=== PATIENT | male | born 1940 | race Two or more races ===

== ENCOUNTER → 2023-11-17 11:23 | Outpatient (REF) | payer OTHER, BC, SELFPAY ==
[2023-11-17 13:23] LABS: Urine Albumin Trace (Neg - Trace); Urine Bilirubin Negative (Negative); Urine Character Slightly Cloudy (Clear); Urine Color Yellow; Urine Glucose Negative (Negative); Urine Ketone Negative (Negative); Urine Leukocyte 2+ (Negative); Urine Nitrite Negative (Negative); Urine Occult Blood 1+ (Negative); Urine Urobilinogen Negative (Neg - 1+)
[2023-11-17 13:56] LABS: Urine Mucus Few; Urine White Cell >100 /HPF (0-5)
[2023-11-17 14:00] LABS: Urine Urothelial Cell 0-2 /LPF (FEW)
== END ==
LOC: REG 11:23
PROVIDERS: ATTENDING PHYSICIAN Urology; FAMILY PHYSICIAN Family Medicine
DX: N39.0 Urinary tract infection, site not specified (principal)
CPT/HCPCS: 81003; 81015; 87077; 87086; 87186

== ENCOUNTER → 2023-12-26 08:31 | Outpatient (REF) | payer OTHER, BC, SELFPAY | LOC: RAD 08:31 | PROVIDERS: ATTENDING PHYSICIAN Family Medicine | DX: K76.0 Fatty (change of) liver, not elsewhere classified (principal) | CPT/HCPCS: 76700 ==